=== PATIENT | female | born 1975 | race Caucasian/White ===

== ENCOUNTER 2023-05-22 11:58 | Emergency (ER) | payer OTHER, MEDICAID, SELFPAY ==
[2023-05-22 12:51] VITALS: BP 148/87; PULSE 65; RESP 16; TEMP 36.9; O2SAT 98; BMI 27.2
--- NOTE | 2023-05-22 12:58 | ED.GENADULT ---
HPI - General Adult General Chief complaint: Dental/Oral Stated complaint: tooth pain Time Seen by Provider: 05/22/23 12:57 Source: patient Mode of arrival: ambulatory Limitations: no limitations History of Present Illness HPI narrative: 47 yold female presets to the presents to the ED for left upper molar pain after eating pork that led too cracked tooth. patient denies any facial swelling,neck swelling, drooling, change in voice, chest pain, shortness of breath, fever, or chills. Related Data Previous Rx's Medication Instructions Recorded amoxicillin 875 mg-potassium 1 tab PO Q12H 10 days #20 tabs 05/22/23 clavulanate 125 mg tablet naproxen 500 mg tablet 500 mg PO BID PRN pain 7 days #14 05/22/23 tabs Allergies Allergy/AdvReac Type Severity Reaction Status Date / Time No Known Allergies Allergy Verified 05/22/23 13:02 Review of Systems Review of Systems: LEft upper molar pain. Cracked tooth Yes all other systems are reviewed and are negative [facility] Social History Social History Advance Directives: No Advance Directives Information Provided: Yes Physical Exam ED Vital Signs: Vital Signs - 24 hr 05/22/23 12:51 Temperature 98.4 F Pulse Rate 65 Respiratory Rate 16 Blood Pressure 148/87 H Pulse Oximetry 98 Oxygen Delivery Method Room Air BMI result Body Mass Index 27.2 Const General: cooperative, healthy appearing, comfortable, no acute distress, well developed, alert, awake and Physically active Orientation/consciousness: oriented to person, oriented to place, oriented to time and patient oriented x3 HENMT Other: Negative for any facial swelling or neck swelling Head: Yes normal to inspection, Yes No palpable skull fracture present, Yes normocephalic and Yes atraumatic Teeth image: 1. Cracked with filling and tender to touch. negative for any trismus. negative for gum swelling. NEgative for facial/neck swelling. negative for any pus collection Eyes General: appearance normal, both eyes and all related structures Neck Neck: Yes normal visual inspection, Yes full ROM, Yes no lymphadenopathy, Yes no meningeal signs, Yes trachea midline, Yes supple, No anterior neck swelling and No tender Chest Chest palpation & inspection: normal inspection of the chest and normal palpation of entire chest wall Resp Effort & Inspection: normal respiratory effort and able to speak in complete sentences Auscultation: clear to auscultation bilaterally Cardio Jugular venous distension: no JVD Heart sounds: S1 normal heart sound present and S2 normal heart sound present GI Inspection: Yes normal to inspection and No abdominal wall ecchymosis Palpation (GI): Soft to palpation, not firm, nontender, no guarding and not rigid General: No CVA tenderness and Yes no CVA tenderness Back/Spine/Pelvis Back: no CVA tenderness, No CVA tenderness and No back tenderness Skin General skin exam: no rashes or lesions noted and elasticity normal Neuro General: oriented to person, oriented to place, oriented to time, patient oriented x3, gait normal, tone normal, moves all extremities, Normal light touch and pain sensation, no meningeal signs, no focal motor deficits, CN's II-XI intact bilaterally and normal sensation to monofilament Extrem General: Yes normal to inspection and Yes full ROM Psych Appearance: grossly normal, well kempt and not disheveled Course Course Course Narrative: RME: left upper molar pain after cracking tooth while eating pork. NO facial swelling Medical Decision Making Medical Decision Making [facility] Narrative: 47 yold female presents to the ED for left upper molar pain that is cracked after eating pork two days ago. patient states no fever, chills, facial swelling, trouble swalloing, chest pain, neck swelling, shortness of breath, recent trauma, neck pain, chest pain, or left arm pain. Differential Diagnosis Differential Diagnoses: The differential diagnosis associated with the presentation includes (Dental pain. Cracked tooth, [place] ANgina, retropharyngeal abscess, ) Admission/Observation Consideration of admission/observation: Escalation of care including admission/observation considered Prescription Management I considered prescription management with: Pain Medication and Antibiotic Discharge Plan Discharge Clinical Impression: Toothache Patient Disposition: Home, Self-Care Instructions: Toothache (ED) Additional Instructions: REturn to the ED for any facial swelling, drooling, neck swelling, fever, chills, drooling, inabilty to swallow liquids, eat solid foods, worsening dental pain, or any other concerning symptoms. pLease folllow up with dentist Prescriptions: New amoxicillin-pot clavulanate 875-125 mg tablet 1 tab PO Q12H 10 Days Qty: 20 0RF naproxen 500 mg tablet 500 mg PO BID PRN (Reason: pain) 7 Days Qty: 14 0RF Stand Alone Forms: Work/School Release Interventions: ED Discharge Assessment Last Done: 05/22/23 13:28 Discharge Date/Time: 05/22/23 13:28 Print Language: [place] Citizen
== END 2023-05-22 13:28 | disposition home or self-care (01) ==
PROVIDERS: Emergency Provider Emergency Medicine
DX: K08.89 Other specified disorders of teeth and supporting structures (principal)
CPT/HCPCS: 99282